=== PATIENT | female | born 1990 | race African-American/Black ===

== ENCOUNTER 2017-03-27 13:24 | Emergency (ER) | payer MEDICAID ==
[~2017-03-27] VITALS: Ht 147.3 cm; Wt 49.9 kg
[2017-03-27] MEDS ORDERED: ALBUTEROL SULF8.5 GM INH (13:36)
[2017-03-27] MEDS ORDERED: Albuterol ud Inhalation HHN ONE (13:45)
[2017-03-27] MEDS ORDERED: Ipratropium 0.02% Inh Soln 2.5ml UD HHN ONE (13:45)
[2017-03-27] MEDS ORDERED: PROAIR HFA8.5 GM INH (14:35)
[2017-03-27 14:42] VITALS: BP 123/75
--- NOTE | 2017-03-27 14:56 | Emergency Room Report ---
History of Present Illness General Chief Complaint: Medication Refill Source: Patient Present Illness HPI The patient is a 26 old female presenting for asthma exacerbation. She states that she's been unable to obtain a PCP and does not have her albuterol any more. She has been having shortness of breath with activity. She has been out of albuterol for the past week. She denies any other symptoms including fever, chills, dizziness, chest pain, cough, rash Allergies: Coded Allergies: CHOCOLATE FLAVOR (Verified Allergy, Unknown, 03/27/17) NUT - UNSPECIFIED (Verified Allergy, Unknown, 03/27/17) PENICILLINS (Verified Allergy, Unknown, 03/27/17) Uncoded Allergies: ALVARES TOMATOES (Allergy, Unknown, 03/27/17) RED SNAPPER (Allergy, Unknown, 03/27/17) Patient History Past Medical History: see triage record Pertinent Family History: none Last Menstrual Period: 02/26/17 Now: No Reviewed Nursing Documentation: PMH: Agreed, PSxH: Agreed Nursing Documentation-PMH Hx Asthma: Yes Review of Systems All Other Systems: negative except mentioned in HPI Physical Exam Vital Signs Date Time Temp Pulse Resp B/P (MAP) Pulse Ox O2 Delivery O2 Flow Rate FiO2 03/27/17 13:30 97.9 89 16 97/63 100 Room Air Sp02 EP Interpretation: reviewed, normal General Appearance: no apparent distress, alert, GCS 15, non-toxic Head: normocephalic, atraumatic Eyes: bilateral eye normal inspection, bilateral eye PERRL ENT: hearing grossly normal, normal pharynx, no angioedema, normal voice Neck: full range of motion, supple/symm/no masses Respiratory: normal inspection, no respiratory distress, no accessory muscle use, decreased breath sounds, wheezing - diffuse Cardiovascular #1: regular rate, rhythm, no edema Musculoskeletal: back normal, gait/station normal, normal range of motion, non- tender Neurologic: alert, oriented x3, responsive, motor strength/tone normal, sensory intact, speech normal Psychiatric: judgement/insight normal, memory normal, mood/affect normal, no suicidal/homicidal ideation Skin: normal color, no rash, warm/dry, well hydrated Lymphatic: no adenopathy Medical Decision Making PA Attestation Dr. Marino is my supervising physician. Patient management was discussed with my supervising physician Diagnostic Impression: Primary Impression: Asthma Qualified Codes: J45.21 - Mild intermittent asthma with (acute) exacerbation ER Course The patient is a 26 old female presenting for asthma exacerbation. Differential diagnoses considered but not limited to: Asthma exacerbation, bronchitis, pneumonia, anxiety Physical exam: Afebrile. No apparent distress HEENT exam is unremarkable Lungs have diffuse wheezing with decreased breath sounds. No respiratory distress The patient given a breathing treatment and states that she is feeling much better. Lung sounds have improved To be discharged home with prescription for albuterol and needs to obtain PCP as soon as possible. ER precautions are given Last Vital Signs Date Time Temp Pulse Resp B/P (MAP) Pulse Ox O2 Delivery O2 Flow Rate FiO2 03/27/17 14:42 83 16 123/75 100 Room Air 03/27/17 14:42 98.8 Status: improved Disposition: HOME, SELF-CARE Condition: Improved Scripts Albuterol Sulfate* (PROAIR HFA*) 8.5 Gm Hfa.aer.ad 2 PUFFS INH Q6H, #8.5 GM 0 Refills Prov: VAZQUEZ BARROS 03/27/17 Patient Instructions: Asthma, Adult Additional Instructions: I discussed my findings with the patient. All questions and concerns have been answered. Treatment and medication compliance have been addressed. I advised the patient that they need to follow up with PMD in 3-5 days. Return to ED if symptoms worsen, new symptoms arise, or if needed for any reason. Patient verbalized understanding of discharge instructions. VAZQUEZ BARROS Mar 27, 2017 14:56
== END 2017-03-27 14:42 | disposition home or self-care (01) ==
LOC: EMR 13:58
DX: J45.21 Mild intermittent asthma with (acute) exacerbation (principal); Z91.018 Allergy to other foods
CPT/HCPCS: 94640; 94664; 99284

== ENCOUNTER 2017-04-16 13:17 | Emergency (ER) | payer MEDICAID ==
[~2017-04-16] VITALS: Ht 147.3 cm; Wt 50.3 kg
[~2017-04-16 13:17] MED LIST: ALBUTEROL SULF8.5 GM INH; PROAIR HFA8.5 GM INH
[2017-04-16 13:32] VITALS: BP 96/67
[2017-04-16 14:28] LABS: EOSINOPHILS % (AUTO) 0.8 % (0.0-3.0); HEMATOCRIT 38.9 % (37.0-47.0); HEMOGLOBIN 12.6 G/DL (12.0-16.0); LYMPHOCYTES % (AUTO) 18.1 % (20.0-45.0); MEAN CORPUSCULAR VOLUME 83 FL (80-99); MONOCYTES % (AUTO) 5.5 % (1.0-10.0); NEUTROPHILS % (AUTO) 74.6 % (45.0-75.0); PLATELET COUNT 289 K/UL (150-450); RED BLOOD COUNT 4.68 M/UL (4.20-5.40); RED CELL DISTRIBUTION WIDTH 12.8 % (11.6-14.8); WHITE BLOOD COUNT 15.1 K/UL (4.8-10.8)
[2017-04-16 14:39] LABS: ANION GAP 9 mmol/L (5-15); BLOOD UREA NITROGEN 6 mg/dL (7-18); CALCIUM 9.7 MG/DL (8.5-10.1); CARBON DIOXIDE 25 MMOL/L (21-32); CHLORIDE 101 MMOL/L (98-107); CREATININE 0.5 MG/DL (0.55-1.30); POTASSIUM 3.4 MMOL/L (3.5-5.1); SODIUM 135 MMOL/L (136-145)
[2017-04-16 15:42] VITALS: BP 92/59
--- NOTE | 2017-04-16 16:06 | Diagnostic Imaging Report ---
Indication: Left adnexal pain, palpable lump, swelling, positive test Technique: Transabdominal and transvaginal images Comparison: None Findings: Uterus measures 12.2 cm length by 6.3 cm AP. Within the endometrium, there is a gestational sac. This contains a pole demonstrates positive heart activity, heart rate 163 beats per minute. [place]-rump length is 40 mm, corresponding to a gestational age 11 weeks 4 days. Posterior fundal placenta, which clears the internal cervical os. No subchorionic hemorrhage demonstrated. The cervix is closed, endocervical canal measuring 3.9 cm in length Left ovary measures 3.6 cm in length, diffusely somewhat prominent, contains an 11 mm hemorrhagic follicle. The right ovary measures 4.3 cm in length. No right adnexal mass demonstrated. No free cul-de-sac fluid Impression: 11 week 4 day, by crown-rump length, single live intrauterine . No acute abnormality demonstrated Prominent left ovary, nonspecific. No discrete left adnexal mass
[2017-04-16 16:11] LABS: APPEARANCE,URINE CLEAR; BILIRUBIN, URINE NEGATIVE (NEGATIVE); COLOR,URINE YELLOW; GLUCOSE, URINE (UA) NEGATIVE (NEGATIVE); KETONES,URINE 4+ (NEGATIVE); LEUKOCYTE ESTERASE ,URINE NEGATIVE (NEGATIVE); NITRITE,URINE NEGATIVE (NEGATIVE); PH,URINE 8 (4.5-8.0); PROTEIN,URINE NEGATIVE (NEGATIVE); UROBILINOGEN,URINE NORMAL MG/DL (0.0-1.0)
--- NOTE | 2017-04-16 16:28 | Emergency Room Report ---
History of Present Illness General Chief Complaint: General Complaint Source: Patient Present Illness HPI 26-year-old female presents to the emergency department complaining of left adnexal tenderness, pain that is 10 out of 10 in severity and swelling that has been progressive onset over the course of 4 days. Patient denies fevers, chills. Patient reports that her BLOG WRITER performed STI testing and Pap smear which all came back as normal. She reports that she is . Patient denies vaginal discharge, bleeding, dysuria, hematuria, constipation or diarrhea. She denies history of ovarian cysts. Patient denies abdominal tenderness she states that her pain is located very low in the left groin area. Pt does report tenderness, pain, swelling to the tailbone area x 2 days. denies trauma or fall, denies similar symptoms in the past. Denies history of STI, skin lesions, or rashes. Patient is . Allergies: Coded Allergies: CHOCOLATE FLAVOR (Verified Allergy, Unknown, 03/27/17) NUT - UNSPECIFIED (Verified Allergy, Unknown, 03/27/17) PENICILLINS (Verified Allergy, Unknown, 03/27/17) Uncoded Allergies: ALVARES TOMATOES (Allergy, Unknown, 03/27/17) RED SNAPPER (Allergy, Unknown, 03/27/17) Patient History Past Medical History: see triage record Past Surgical History: none Pertinent Family History: none Last Menstrual Period: 01/25/17 Now: Yes : 1 Para: 0 Reviewed Nursing Documentation: PMH: Agreed, PSxH: Agreed Nursing Documentation-PMH Past Medical History: No History, Except For Hx Asthma: Yes Review of Systems All Other Systems: negative except mentioned in HPI Physical Exam Vital Signs Date Time Temp Pulse Resp B/P (MAP) Pulse Ox O2 Delivery O2 Flow Rate FiO2 04/16/17 13:22 97.7 98 17 96/67 97 Room Air Sp02 EP Interpretation: reviewed, normal General Appearance: no apparent distress, alert, GCS 15, non-toxic Head: normocephalic, atraumatic Eyes: bilateral eye normal inspection, bilateral eye PERRL ENT: hearing grossly normal, normal voice Neck: full range of motion Respiratory: lungs clear, normal breath sounds, speaking full sentences Cardiovascular #1: regular rate, rhythm Gastrointestinal: normal bowel sounds, soft, no guarding, tenderness - TTP in the left lower quadrant. pain radiates down into the adnexal area. Rectal: deferred Genitourinary: normal inspection, no CVA tenderness, other - left adnexal TTP, with palpable swelling noted, no erythema, no fluctuance, no lesions. Musculoskeletal: back normal, gait/station normal, normal range of motion, non- tender Neurologic: alert, oriented x3, responsive, motor strength/tone normal, sensory intact, speech normal Skin: normal color, no rash - pt. also has erythema, ttp, no fluctuace, some mild induration in the guteal cleft consistent with pilonidal mild irritation . , warm/dry, well hydrated, other Lymphatic: adenopathy - left inguinal LAD vs swollen soft tissue/ structure. Medical Decision Making PA Attestation Dr. Chambers is my supervising Physician whom patient management has been discussed with. Diagnostic Impression: Primary Impression: Ovarian cyst during in first trimester Additional Impression: Pilonidal cyst without abscess ER Course 26-year-old female presents to the emergency department complaining of left adnexal tenderness, pain that is 10 out of 10 in severity and swelling that has been progressive onset over the course of 4 days. Patient denies fevers, chills. Patient reports that her BLOG WRITER performed STI testing and Pap smear which all came back as normal. She reports that she is . Patient denies vaginal discharge, bleeding, dysuria, hematuria, constipation or diarrhea. She denies history of ovarian cysts. Patient denies abdominal tenderness she states that her pain is located very low in the left groin area. Pt does report tenderness, pain, swelling to the tailbone area x 2 days. denies trauma or fall, denies similar symptoms in the past. Denies history of STI, skin lesions, or rashes. Patient is . Ddx considered but are not limited to: Fibroid, ectopic , Fibroid, Spontaneous , Vital signs: are WNL, pt. is afebrile H&PE are most consistent with: Left adnexal pain will assess for torsion, ectopic, and do lab work. Pilonidal cyst with irritation and mild infection, does not require I & D at this time. ORDERS: -CBC: elevated most likely due to acute stress. -CMP: mildly low electrolytes otherwise WNL/ Unremarkable -Urine hcg- Positive -serum Hcg Quant: [id number] - Blood/RH type and screen- see attached labs ( A POSITIVE) -Pelvic US complete- normal intrauterine estimated at 11 weeks gestation. HR 156, Left hemorrhagic ovarian cyst, no free fluid per US report. ED INTERVENTIONS: -Tylenol PO DISCHARGE: At this time pt. is stable for d/c to home. Will provide printed patient care instructions, and any necessary prescriptions. Care plan and follow up instructions have been discussed with the patient prior to discharge. Labs Test 04/16/17 14:05 04/16/17 16:00 White Blood Count 15.1 K/UL (4.8-10.8) Red Blood Count 4.68 M/UL (4.20-5.40) Hemoglobin 12.6 G/DL (12.0-16.0) Hematocrit 38.9 % (37.0-47.0) Mean Corpuscular Volume 83 FL (80-99) Mean Corpuscular Hemoglobin 26.9 PG (27.0-31.0) Mean Corpuscular Hemoglobin Concent 32.4 G/DL (32.0-36.0) Red Cell Distribution Width 12.8 % (11.6-14.8) Platelet Count 289 K/UL (150-450) Mean Platelet Volume 7.2 FL (6.5-10.1) Neutrophils (%) (Auto) 74.6 % (45.0-75.0) Lymphocytes (%) (Auto) 18.1 % (20.0-45.0) Monocytes (%) (Auto) 5.5 % (1.0-10.0) Eosinophils (%) (Auto) 0.8 % (0.0-3.0) Basophils (%) (Auto) 1.0 % (0.0-2.0) Sodium Level 135 MMOL/L (136-145) Potassium Level 3.4 MMOL/L (3.5-5.1) Chloride Level 101 MMOL/L (98-107) Carbon Dioxide Level 25 MMOL/L (21-32) Anion Gap 9 mmol/L (5-15) Blood Urea Nitrogen 6 mg/dL (7-18) Creatinine 0.5 MG/DL (0.55-1.30) Estimat Glomerular Filtration Rate > 60 mL/min (>60) Glucose Level 90 MG/DL (74-106) Calcium Level 9.7 MG/DL (8.5-10.1) Human Chorionic Gonadotropin, Quant 75568 mIU/mL (1-6) Urine Color Yellow Urine Appearance Clear Urine pH 8 (4.5-8.0) Urine Specific [place]ady 1.010 (1.005-1.035) Urine Protein Negative (NEGATIVE) Urine Glucose (UA) Negative (NEGATIVE) Urine Ketones 4+ (NEGATIVE) Urine Occult Blood 4+ (NEGATIVE) Urine Nitrite Negative (NEGATIVE) Urine Bilirubin Negative (NEGATIVE) Urine Urobilinogen Normal MG/DL (0.0-1.0) Urine Leukocyte Esterase Negative (NEGATIVE) Urine RBC 5-10 /HPF (0 - 2) Urine WBC 0-2 /HPF (0 - 2) Urine Squamous Epithelial Cells Few /LPF (NONE/OCC) Urine Amorphous Sediment Few /LPF (NONE) Urine Bacteria Few /HPF (NONE) Urine HCG, Qualitative Positive Last Vital Signs Date Time Temp Pulse Resp B/P (MAP) Pulse Ox O2 Delivery O2 Flow Rate FiO2 04/16/17 15:42 98.2 16 92/59 100 Room Air 04/16/17 13:22 98 Disposition: HOME, SELF-CARE Condition: Stable Scripts Erythromycin Base (Erythromycin) 250 Mg Tablet 250 MG ORAL QID for 7 Days, #28 TAB Prov: Mi Estrada 04/16/17 Acetaminophen* (TYLENOL EXTRA STRENGTH*) 500 Mg Tablet 500 MG ORAL Q6H, #30 TAB 0 Refills Prov: Mi Estrada 04/16/17 Referrals: NOT CHOSEN IPA/,REFERRING (PCP) Patient Instructions: Ovarian Cyst, Pilonidal Cyst Additional Instructions: Take medications as directed. Follow up with a OBGYN in 3-5 days, even if your symptoms have resolved. --Please review list of primary care clinics, if you do not already have a primary care provider Return sooner to ED if new symptoms occur, or current symptoms become worse. - Please note that this Emergency Department Report was dictated using [employer] Componentassessment consultant technology software, occasionally this can lead to erroneous entry secondary to interpretation by the dictation equipment. Mi Estrada Apr 16, 2017 16:28
[2017-04-16] MEDS ORDERED: ERYTHROCIN250 MG ORAL (16:31)
[2017-04-16] MEDS ORDERED: TYLENOL EXTRA500 MG ORAL (16:31)
[2017-04-16 16:37] VITALS: BP 92/59
== END 2017-04-16 16:37 | disposition home or self-care (01) ==
LOC: EMR 13:55
DX: O34.81 Maternal care for other abnormalities of pelvic organs, first trimester (principal); N83.202 Unspecified ovarian cyst, left side; Z3A.11 11 weeks gestation of pregnancy; L05.91 Pilonidal cyst without abscess; Z88.0 Allergy status to penicillin; Z91.018 Allergy to other foods
CPT/HCPCS: 36415; 76801; 76830; 80048; 81003; 81025; 84702; 85025; 86850; 86900; 86901; 99284

== ENCOUNTER 2017-05-05 16:15 | Emergency (ER) | payer MEDICAID, OTHER ==
[~2017-05-05] VITALS: Ht 147.3 cm; Wt 52.2 kg
[~2017-05-05 16:15] MED LIST changes: +ERYTHROCIN250 MG ORAL; +TYLENOL EXTRA500 MG ORAL
[2017-05-05 16:18] VITALS: BP 106/68
[2017-05-05] MEDS ORDERED: NKM (16:20)
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
[2017-05-05] MEDS ORDERED: CHLORHEXIDINE473 ML MM (16:57)
[2017-05-05] MEDS ORDERED: LIDOCAINE VISC100 ML ORAL (16:57)
[2017-05-05 17:07] VITALS: BP 106/68
== END 2017-05-05 17:41 | disposition home or self-care (01) ==
LOC: EMR 16:50
DX: S10.11XA Abrasion of throat, initial encounter (principal); S10.0XXA Contusion of throat, initial encounter; Y04.0XXA Assault by unarmed brawl or fight, initial encounter; Y92.89 Other specified places as the place of occurrence of the external cause; J45.909 Unspecified asthma, uncomplicated; Z91.018 Allergy to other foods; Z88.0 Allergy status to penicillin
CPT/HCPCS: 99284

== ENCOUNTER 2017-09-06 17:33 | Emergency (ER) | payer OTHER ==
[~2017-09-06] VITALS: Ht 147.3 cm; Wt 59.0 kg
[~2017-09-06 17:33] MED LIST changes: +CHLORHEXIDINE473 ML MM; +LIDOCAINE VISC100 ML ORAL; +NKM
[2017-09-06 17:44] VITALS: BP 94/61
[2017-09-06] MEDS ORDERED: PRENATAL 19 TA1 EAC1 PO (17:48)
--- NOTE | 2017-09-06 17:52 | Emergency Room Report ---
History of Present Illness General Chief Complaint: Medication Refill Source: Patient Present Illness HPI Pt. presents to the ED c/o running out of her albuterol inhaler. Patient reports intermittent wheezing several times a week. Patient states that she is 31 weeks . Patient denies abdominal pain, contraction, or vaginal discharge/bleeding. Patient has no related complaints at this time she is here just for refill of albuterol. Denies fevers, chills, chest pain, palpitations. Denies headache. Allergies: Coded Allergies: CHOCOLATE FLAVOR (Verified Allergy, Unknown, 03/27/17) NUT - UNSPECIFIED (Verified Allergy, Unknown, 03/27/17) PENICILLINS (Verified Allergy, Unknown, 03/27/17) Uncoded Allergies: ALVARES TOMATOES (Allergy, Unknown, 03/27/17) RED SNAPPER (Allergy, Unknown, 03/27/17) Patient History Past Medical History: see triage record Past Surgical History: none Pertinent Family History: none Last Menstrual Period: 12/2016 Now: Yes : 1 Para: 0 Reviewed Nursing Documentation: PMH: Agreed; PSxH: Agreed Nursing Documentation-PMH Past Medical History: No History, Except For Hx Asthma: Yes Review of Systems All Other Systems: negative except mentioned in HPI Physical Exam Vital Signs Date Time Temp Pulse Resp B/P (MAP) Pulse Ox O2 Delivery O2 Flow Rate FiO2 09/06/17 17:44 97.8 96 18 94/61 98 Room Air 97.9 Sp02 EP Interpretation: reviewed, normal General Appearance: no apparent distress, alert, GCS 15, non-toxic Head: normocephalic, atraumatic ENT: hearing grossly normal, normal voice Neck: full range of motion Respiratory: chest non-tender, lungs clear, normal breath sounds, speaking full sentences, wheezing - scant expiratory wheezes bilaterally. Cardiovascular #1: regular rate, rhythm, no edema Gastrointestinal: other - gravid Musculoskeletal: back normal, gait/station normal, normal range of motion Neurologic: alert, oriented x3, responsive, motor strength/tone normal, sensory intact, normal gait, speech normal, grossly normal Psychiatric: judgement/insight normal Skin: normal color, no rash, warm/dry, well hydrated Lymphatic: no adenopathy Medical Decision Making PA Attestation Dr. Carrillo is my supervising Physician whom patient management has been discussed with. Diagnostic Impression: Primary Impression: Encounter for medication refill Additional Impression: Asthma Qualified Codes: J45.20 - Mild intermittent asthma, uncomplicated ER Course Pt. presents to the ED c/o running out of her albuterol inhaler. Patient reports intermittent wheezing several times a week. Patient states that she is 31 weeks . Patient denies abdominal pain, contraction, or vaginal discharge/bleeding. Patient has no related complaints at this time she is here just for refill of albuterol. Denies fevers, chills, chest pain, palpitations. Denies headache. Ddx considered but are not limited to: drug seeking, OD, bronchitis, asthma exacerbation Vital signs: are WNL, pt. is afebrile H&PE are most consistent with need for medication refill. - albuterol inhaler ORDERS: none required at this time, the diagnosis is clinical ED INTERVENTIONS: None required at this time. DISCHARGE: At this time pt. is stable for d/c to home. Will provide printed patient care instructions, and any necessary prescriptions. Care plan and follow up instructions have been discussed with the patient prior to discharge. Last Vital Signs Date Time Temp Pulse Resp B/P (MAP) Pulse Ox O2 Delivery O2 Flow Rate FiO2 09/06/17 17:44 97.8 96 18 94/61 98 Room Air 97.9 Disposition: HOME, SELF-CARE Condition: Stable Scripts Albuterol Sulfate* (ALBUTEROL SULFATE MDI*) 8.5 Gm Hfa.aer.ad 2 PUFF INH Q4H, #1 INH 2 Refills Prov: Mi Estrada 09/06/17 Patient Instructions: Medicine Refill at the Emergency Department Additional Instructions: Take medications as directed. Follow up with a Primary Care Provider in 3-5 days, even if your symptoms have resolved. --Please review list of primary care clinics, if you do not already have a primary care provider Return sooner to ED if new symptoms occur, or current symptoms become worse. - Please note that this Emergency Department Report was dictated using [employer] turner technology software, occasionally this can lead to erroneous entry secondary to interpretation by the dictation equipment. Mi Estrada Sep 06, 2017 17:52
[2017-09-06] MEDS ORDERED: ALBUTEROL SULF8.5 GM INH (17:53)
[2017-09-06 18:07] VITALS: BP 97/65
== END 2017-09-06 18:07 | disposition home or self-care (01) ==
LOC: EMR 17:52
DX: Z76.0 Encounter for issue of repeat prescription (principal); J45.909 Unspecified asthma, uncomplicated
CPT/HCPCS: 99283

== ENCOUNTER 2020-02-04 15:31 | Emergency (ER) | payer OTHER ==
[~2020-02-04] VITALS: Ht 147.3 cm; Wt 49.9 kg
[~2020-02-04 15:31] MED LIST changes: +PRENATAL 19 TA1 EAC1 PO
[2020-02-04 16:10] VITALS: BP 90/57
--- NOTE | 2020-02-04 16:10 | NUR ---
ED Nurse Note: Patient walked in to ER for medicatin refill of albuterol and triamcinolon cream. AAO x4, VSS at this time
--- NOTE | 2020-02-04 16:15 | Emergency Room Report ---
History of Present Illness General Chief Complaint: Medication Refill Source: Patient Present Illness HPI 29-year-old female with history of asthma and contact dermatitis here requesting a refill of albuterol inhaler and triamcinolone cream. Patient is in no distress and denies any wheezing at this time. Reports that she has been unable to follow-up with primary doctor this past month. Denies any cough or congestion. Denies any worsening asthma. Reports she uses her inhaler as needed reports that she just moved her apartment and is scared that her allergies will flareup again and her asthma will exacerbate. Denies any painful rash. Denies any fever and chills. Denies . Allergies: Coded Allergies: CHOCOLATE FLAVOR (Verified Allergy, Unknown, 03/27/17) NUT - UNSPECIFIED (Verified Allergy, Unknown, 03/27/17) PENICILLINS (Verified Allergy, Unknown, 03/27/17) Uncoded Allergies: ALVARES TOMATOES (Allergy, Unknown, 03/27/17) RED SNAPPER (Allergy, Unknown, 03/27/17) COVID-19 Screening Contact w/high risk pt: No Experienced COVID-19 symptoms?: No COVID-19 Testing performed TREE WRAPPER: No Patient History Past Medical History: see triage record Past Surgical History: none Pertinent Family History: none Last Menstrual Period: 01/26/20 Now: No Immunizations: UTD Reviewed Nursing Documentation: PMH: Agreed; PSxH: Agreed Nursing Documentation-PMH Past Medical History: No History, Except For Hx Asthma: Yes Review of Systems All Other Systems: negative except mentioned in HPI Physical Exam Vital Signs Date Time Temp Pulse Resp B/P (MAP) Pulse Ox O2 Delivery O2 Flow Rate FiO2 02/04/20 15:48 98.2 57 17 90/57 (68) 98 Room Air Sp02 EP Interpretation: reviewed, normal General Appearance: well appearing, no apparent distress Head: normocephalic, atraumatic ENT: hearing grossly normal, normal voice Neck: full range of motion, supple Respiratory: no rhonchi, no respiratory distress, no wheezing, speaking full sentences Cardiovascular #1: no gallop, no murmur, no rub Gastrointestinal: soft Rectal: deferred Genitourinary: no CVA tenderness Musculoskeletal: normal inspection, gait/station normal Neurologic: alert, normal gait Psychiatric: mood/affect normal Skin: other - Contact dermatitis noted back Lymphatic: no adenopathy Medical Decision Making SEGUNDO Attestation All diagnoses and treatment plans were reviewed and discussed with my supervising physician Dr. De Santiago Diagnostic Impression: Primary Impression: Encounter for medication refill ER Course 29-year-old female with history of asthma and contact dermatitis here requesting a refill of albuterol inhaler and triamcinolone cream. Patient is in no distress and denies any wheezing at this time. Reports that she has been unable to follow-up with primary doctor this past month. Denies any cough or congestion. Denies any worsening asthma. Reports she uses her inhaler as needed reports that she just moved her apartment and is scared that her allergies will flareup again and her asthma will exacerbate. Denies any painful rash. Denies any fever and chills. Denies . Ddx considered but are not limited to: Eczema, scabies, lice, Vital signs: are WNL, pt. is afebrile H&PE are most consistent with: Medication refill for eczema and asthma ORDERS: Albuterol inhaler, triamcinolone cream ED INTERVENTIONS: None required at this time. DISCHARGE: At this time pt. is stable for d/c to home. Will provide printed patient care instructions, and any necessary prescriptions. Care plan and follow up instructions have been discussed with the patient prior to discharge. Patient take medication as directed, follow primary care provider. If worsening symptoms return to the emergency room Last Vital Signs Date Time Temp Pulse Resp B/P (MAP) Pulse Ox O2 Delivery O2 Flow Rate FiO2 02/04/20 15:48 98.2 57 17 90/57 (68) 98 Room Air Disposition: HOME, SELF-CARE Condition: Stable Scripts Albuterol Sulfate (VENTOLIN HFA) 18 Gm Hfa.aer.ad 2 PUFFS INH EVERY 6 HOURS, #18 GM 0 Refills Prov: Jose Dodson 02/04/20 Triamcinolone Acetonide (Triamcinolone Acetonide 0.5% Cream*) 15 Gm Cream..g. 2 GM TP BID, #30 GM Prov: Jose Dodson 02/04/20 Referrals: NON PHYSICIAN (PCP) Patient Instructions: Medicine Refill at the Emergency Department Jose Dodson Feb 04, 2020 16:15
[2020-02-04] MEDS ORDERED: VENTOLIN HFA18 GM INH (16:17)
[2020-02-04] MEDS ORDERED: TRIAMCINOLONE A15 G1 TP (16:17)
[2020-02-04 16:22] VITALS: BP 90/57
--- NOTE | 2020-02-04 16:22 | NUR ---
ED Nurse Note: Pt cleared by health care Provider for discharge. DC instructions/prescription was given and explained to pt and verbalized understanding of teachings. All medical deviecs such as ID band removed. Pt is AAO x4, ambulatory and left with all personal belongings.
== END 2020-02-04 16:22 | disposition home or self-care (01) ==
LOC: EMR 16:00
DX: Z76.0 Encounter for issue of repeat prescription (principal); Z88.0 Allergy status to penicillin; Z91.018 Allergy to other foods; L25.9 Unspecified contact dermatitis, unspecified cause; J45.909 Unspecified asthma, uncomplicated
CPT/HCPCS: 99282